=== PATIENT | male | born 1935 | race Caucasian/White ===

== ENCOUNTER → 2022-10-30 10:57 | Outpatient (BNVA) | payer MEDICARE, SELFPAY | PROVIDERS: PCP Internal Medicine; Visit Provider Specialist | DX: G62.89 Other specified polyneuropathies (principal) | CPT/HCPCS: 95909; 95911 ==

== ENCOUNTER → 2023-01-26 12:59 | Outpatient (BNVA) | payer MEDICARE, SELFPAY | PROVIDERS: PCP Internal Medicine; Visit Provider Specialist | DX: G20 Parkinson's disease (principal); E11.40 Type 2 diabetes mellitus with diabetic neuropathy, unspecified; I95.1 Orthostatic hypotension; G37.9 Demyelinating disease of central nervous system, unspecified | CPT/HCPCS: 99205 ==